=== PATIENT | female | born 1980 | race Caucasian/White ===

== ENCOUNTER 2021-12-06 10:16 | Emergency (ER) | payer OTHER ==
[2021-12-06] MEDS ORDERED: AUGMENTIN 875-1 EACH PO (12:57)
== END 2021-12-06 13:16 | disposition home or self-care (01) ==
LOC: FER 10:16
DX: S01.551A Open bite of lip, initial encounter (principal); Z88.5 Allergy status to narcotic agent; W54.0XXA Bitten by dog, initial encounter; Y92.009 Unspecified place in unspecified non-institutional (private) residence as the place of occurrence of the external cause
CPT/HCPCS: 99283